=== PATIENT | female | born 1965 | race Caucasian/White ===

== ENCOUNTER 2017-03-10 12:38 | Outpatient (CLI) | payer OTHER ==
--- NOTE | 2017-03-10 15:48 | DIAGNOSTIC IMAGING REPORT ---
PROCEDURE: CT LOWER EXT W/O CONTRAST-LEFT INDICATION: POST TRAUMATIC ARTHRITIS PAIN TECHNIQUE: Axial thin-slice CT images obtained through both feet with coronal sagittal, and true axial reformations of the left foot. COMPARISON: Correlation made to plain films 06/26/2014. FINDINGS: There is a dorsal medial compression plate and multiple screws fixing, and causing osseous fusion of the talonavicular joint. The two proximal screw heads appear to have caused reactive osseous remodelling of the medial distal tibial epiphysis including well corticated osseous erosion dorsally, and spurring and sub cortical cystic change medially. There is fracture of the of the proximal medial screw as confirmed by plain film (chronic). None of the screws appear to be backing out. There is a transversely oriented 6.7 mm screw fragment within the distal aspect of the anterior talus without extension to any cortical surface. There is a vertically oriented 14 mm screw fragment which also does not extend to the cortex. A third 7 mm screw fragment is longitudinally oriented at the same level as the transverse fragment. No definite lucency surrounding the screws to suggest loosening. The compression plate remains flush against the bone surface dorsally. There is a lucency along the plantar medial navicular suggestive of a prior screw tract. Tiny partial avulsion fracture off the distal fibular tip. No other fractures. No evidence of nonunion/pseudoarthrosis. There is dystrophic calcification, vaguely triangular in shape, measuring approximately 14 mm along the dorsal lateral aspect of the navicular. At one end of this calcification, there is a punctate metallic foreign body. Slight plantar subluxation at the calcaneal cuboid articulation with reactive spurring along the dorsal aspect. Mild spurring at the posterior and middle subtalar joints. Cortical irregularity the distal aspect of the navicular involving its articulation with the middle and lateral cuneiforms. Moderate size plantar calcaneal spur. Enthesopathy at the Achilles tendon insertion. Mild degenerative joint space loss, flattening, and spurring at the first MTP joint. Soft tissues are unremarkable. No suspicious fluid collections. IMPRESSION: 1. Hardware fixation and osseous fusion involving the talonavicular articulation. 2. Reactive bone changes to the hardware in the anterior and medial distal tibia. 3. There are three screw fragments imbedded within the bone which do not extend to or through any cortical surface. 4. No evidence of compression plate loosening. 5. Dystrophic calcification dorsal lateral to the navicular, potentially myositis ossificans. 6. Moderate arthritic changes elsewhere in the hind foot.
--- NOTE | 2017-03-10 16:06 | DIAGNOSTIC IMAGING REPORT ---
PROCEDURE: MR LOW EXT NONJOINT WO CON-LT INDICATION: POST TRAUMATIC ARTHRITIS PAIN TECHNIQUE: Sagittal and coronal T1, STIR, and sagittal STIR sequence of the left ankle and foot. The study was aborted secondary to nondiagnostic images of patient's area of pain. COMPARISON: Correlation made to plain films 06/26/2014 FINDINGS: The study is suboptimal and incomplete secondary to extensive metallic susceptibility and distortion of the proximal medial aspect of the hind foot due to indwelling hardware. The ankle mortise is intact. The visible non distorted marrow has a grossly normal signal. There is moderate spurring at the dorsal calcaneal cuboid joint. The lateral supporting ankle ligaments are intact. The medial tendons as they can be visualized, Achilles tendon and peroneal tendons, are intact. The bands of the plantar fascia and plantar musculature appears grossly normal. The vitamin E capsule along the dorsal medial hind foot indicates patient's site of pain. The underlying soft tissues are obscured by metallic susceptibility artifact. IMPRESSION: 1. Suboptimal and incomplete MRI of the left foot and ankle. The patient's area of pain is obscured by susceptibility artifact. 2. Moderate spurring at the calcaneal cuboid joint indicative of chronic osteoarthritic change. 3. The visualized aspects of the foot and ankle are otherwise intact.
== END 2017-03-10 23:00 ==
LOC: MRI SRH 12:38
DX: M19.072 Primary osteoarthritis, left ankle and foot (principal); Z96.9 Presence of functional implant, unspecified